=== PATIENT | female | born 1950 | race Caucasian/White ===

== ENCOUNTER → 2016-08-09 | Outpatient (CLI) | payer MEDICARE, BC ==
--- NOTE | 2016-08-09 13:31 | Diagnostic Imaging Report ---
Indication: COUGH Technique: PA and lateral views of the chest. Findings: Comparison: None Lung symmetrically hyperinflated but clear. Cardiac silhouette upper limits of normal size. Aortic arch mildly calcified. Suggestion of mild pectus excavatum deformity on lateral view. Osteophytes upper thoracic spine. The extra pulmonary soft tissues, remainder of the cardiomediastinal silhouette, pulmonary vasculature, and pleural surfaces are unremarkable. IMPRESSION: No evidence of acute cardiopulmonary disease suggestion of COPD Borderline cardiomegaly Aortosclerosis Mild degenerative spondylosis Pectus excavatum
== END | disposition home or self-care (01) ==
LOC: RAD 11:54
DX: R05 Cough (principal); I70.0 Atherosclerosis of aorta; M47.9 Spondylosis, unspecified; Q67.6 Pectus excavatum
CPT/HCPCS: 71020

== ENCOUNTER 2017-07-20 13:55 | Outpatient (CLI) | payer MEDICARE, BC ==
[~2017-07-20] VITALS: Ht 30.5 cm; Wt 0.5 kg
--- NOTE | 2017-07-20 18:41 | Diagnostic Imaging Report ---
Indication: Evaluate pelvic lump Technique: CT of the abdomen and pelvis utilizing automated exposure control without intravenous chest. CT dose: Total DLP 556.68 mGycm; CTDI vol 12.77 mGy Comparison: None Findings: Please note that evaluation of the abdominal and pelvic viscera is limited without the use of intravenous contrast. Within these limitations, the following observations are made: Mild atelectatic changes noted in the lung bases. Heart is borderline enlarged. There is a small pericardial effusion. A well-circumscribed 8 mm hypodensity in the right hepatic lobe (series 3 image #30) is too small to fully characterize but possibly represents a simple hepatic cyst. Noncontrast evaluation of the liver is otherwise unremarkable. Gallbladder is unremarkable in appearance. Noncontrast evaluation of the spleen, adrenal glands and pancreas is grossly unremarkable. Kidneys are symmetric in size. There is no urinary tract stone or hydronephrosis bilaterally. Bladder is unremarkable. Uterus grossly unremarkable for noncontrast CT. Adnexa not definitively identified. There is no evidence of bowel obstruction. No free intraperitoneal fluid or air is identified. There is copious stool in the colon raising question for constipation. A 8 mm well-circumscribed rounded structure contiguous with the right colon may represent a small diverticulum (series 3 image #67). No focal bowel wall thickening or perienteric diameter changes appreciated. There is a tiny fat-containing umbilical hernia. There is no bulky abdominal or pelvic lymphadenopathy. Abdominal aorta is normal in caliber with scattered atherosclerotic calcifications. There are degenerative changes of the spine. No acute osseous abnormality is seen. No focal soft tissue mass is identified. Specifically, no definite subcutaneous mass identified in the pelvis consistent with given history of palpable lump. Please note that the scan ends just below the level of the symphysis pubis and therefore abnormalities in the perineal region would be missed. IMPRESSION: Limited exam without IV contrast. Within these limitations: * No focal abnormal mass lesion identified. Specifically, no definite subcutaneous mass identified in the pelvis consistent with given history of pelvic "lump." Please note that the scan ends just below the level of the symphysis pubis and therefore abnormalities in the perineal region would be missed. Repeat exam specifically protocoled to include this region can be obtained as clinically indicated for further evaluation. Consider more sensitive evaluation with IV contrast. * Small pericardial effusion. * Probable simple hepatic cyst in the right lobe of the liver. * Copious stool seen in the colon. Query constipation. The CT scanner at [facility] is accredited by the [employer] and the scans are performed using protocols designed to limit radiation exposure to as low as reasonably achievable to attain images of sufficient resolution adequate for diagnostic evaluation.
== END 2017-07-20 15:55 | disposition home or self-care (01) ==
LOC: CAT 13:55
DX: R19.00 Intra-abdominal and pelvic swelling, mass and lump, unspecified site (principal); I31.3 Pericardial effusion (noninflammatory)
CPT/HCPCS: 74176